=== PATIENT | male | born 1975 | race Caucasian/White ===

== ENCOUNTER 2021-10-13 15:38 | Outpatient (CLI) | payer OTHER ==
[2021-10-14 00:31] LABS: SARS-CoV-2 PCR by NAA Not Detected (NotDetected)
== END 2021-10-13 15:39 | disposition home or self-care (01) ==
LOC: CSHLAB 15:38
PROVIDERS: ATTEND Internal Medicine Gastroenterology
DX: Z20.822 Contact with and (suspected) exposure to COVID-19 (principal); Z12.11 Encounter for screening for malignant neoplasm of colon
CPT/HCPCS: U0003; U0005

== ENCOUNTER 2021-10-18 09:34 | Day surgery (SDC) | payer OTHER ==
[2021-10-14 10:37] VITALS: BMI 31.9
[2021-10-18] MEDS ORDERED: Lidocaine 1% MPF 2 ML VIAL ONE (10:13)
[2021-10-18] MEDS ORDERED: PROPOFOL 20 ML ONE ×2 (10:22→10:52)
== END 2021-10-18 11:36 | disposition home or self-care (01) ==
LOC: CSHSDC 09:34
PROVIDERS: ATTEND Internal Medicine Gastroenterology
PROC: 0DJD8ZZ Inspection of Lower Intestinal Tract, Via Natural or Artificial Opening Endoscopic (ICD-10-PCS; principal; 2021-10-18)
DX: Z12.11 Encounter for screening for malignant neoplasm of colon (principal); Z80.0 Family history of malignant neoplasm of digestive organs
CPT/HCPCS: J2704